=== PATIENT | male | born 1945 | race Caucasian/White ===

== ENCOUNTER 2021-03-08 14:44 | Emergency (ER) | payer MEDICARE, MEDICAID ==
[~2021-03-08] VITALS: Ht 170.2 cm; Wt 80.5 kg
[~2021-03-08 14:44] MED LIST: ACET-1008 PO; ASPI-611 PO; BUDE10.2 INH; FOLI0.4T6 PO; METH2.5T PO; PRED5TAB PO; SPIIN IH; TIOT18CA3 INH
[2021-03-08 19:33] VITALS: BP 137/79
== END 2021-03-08 19:34 | disposition home or self-care (01) ==
LOC: ER 14:45
DX: S11.90XD Unspecified open wound of unspecified part of neck, subsequent encounter (principal); I50.9 Heart failure, unspecified; Z79.82 Long term (current) use of aspirin; Z79.899 Other long term (current) drug therapy; X58.XXXD Exposure to other specified factors, subsequent encounter
CPT/HCPCS: 99281

== ENCOUNTER 2021-03-13 16:59 | Emergency (ER) | payer MEDICARE, MEDICAID ==
[~2021-03-13] VITALS: Ht 172.7 cm; Wt 84.6 kg
[2021-03-13 18:56] VITALS: BP 140/79
== END 2021-03-13 19:32 | disposition home or self-care (01) ==
LOC: ER 17:01
DX: L76.22 Postprocedural hemorrhage of skin and subcutaneous tissue following other procedure (principal); I25.10 Atherosclerotic heart disease of native coronary artery without angina pectoris; Z79.899 Other long term (current) drug therapy
CPT/HCPCS: 99284